=== PATIENT | female | born 1970 | race Caucasian/White ===

== ENCOUNTER 2019-02-25 12:44 | Outpatient (RCR) | payer BC, SELFPAY ==
[2019-02-25] MEDS: Normal Saline 1,000 ML 600 ML IV (13:00)
[2019-02-25] MEDS: Normal Saline Flush 10 ML SYR IVP (13:00)
== END 2019-03-19 23:59 | disposition home or self-care (01) ==
LOC: INF 12:44
PROVIDERS: Visit Provider Internal Medicine
DX: I95.1 Orthostatic hypotension; R00.0 Tachycardia, unspecified
CPT/HCPCS: 96360